=== PATIENT | male | born 1965 | race Caucasian/White ===

== ENCOUNTER 2020-09-02 16:43 | Emergency (ER) | payer BC ==
[2020-09-02 17:34] VITALS: BP 153/92; PULSE 78; RESP 20; TEMP 98.1
[2020-09-02] MEDS ORDERED: PROPARACAINE 0.5% OPHTH DROPS 15 ML BTL RIGHT EYE STA (19:43)
[2020-09-02] MEDS ORDERED: FLUORESCEIN STRIPS 1 MG STRIP RIGHT EYE ONE (19:43)
--- NOTE | 2020-09-02 19:43 | ED ---
Eye Problem HPI - General Chief complaint: Eye Problems Stated complaint: rt eye abrasion Time Seen by Provider: 09/02/20 19:05 Source: patient Mode of arrival: ambulatory Limitations: no limitations - History of Present Illness Initial comments: 55-year-old white male presents to the emergency room with his , alert and oriented 4, complaining of right eye foreign body this morning while cutting the grass. Patient states his he irrigated his eye and he continued to have pain, he went to urgent care and they irrigated his eye again did a fluorescein exam with proparacaine drops and was sent to the emergency room for evaluation of her abrasion or foreign body. Patient states that he currently 4 out of 10 pain described as aching. Patient states he does have a history of uveitis. Tetanus shot is up-to-date MD chief complaint: eye pain -: hour(s) (9) Onset Description: sudden Location: right eye Place: home If Injury: other (While cutting the grass) Eye Symptoms: redness, pain, other (Take) Severity scale (1-10): 4 If Pain, Quality: aching Consistency: constant Context: other (Foreign body) Associated Symptoms: none Treatments Prior to Arrival: irrigated eye, eyepatch, other (Seen in urgent care after proparacaine and fluorescein exam) - Related Data Previous Rx's Medication Instructions Recorded Erythromycin Ophth Oint [Romycin 1 applic RIGHT EYE QID 5 Days #1 gm 09/02/20 Ophth Oint] Allergies Allergy/AdvReac Type Severity Reaction Status Date / Time No Known Allergies Allergy Verified 09/02/20 17:34 Review of Systems ROS Statement: Those systems with pertinent positive or pertinent negative responses have been documented in the HPI. ROS Other: All systems not noted in ROS Statement are negative. Past Medical History Past Medical History: No Reported History History of Any Multi-Drug Resistant Organisms: None Reported Past Surgical History: Joint Replacement Additional Past Surgical History / Comment(s): lt shoulder Past Psychological History: No Psychological Hx Reported Smoking Status: Never smoker Past Alcohol Use History: Rare Past Drug Use History: None Reported General Exam Limitations: no limitations General appearance: alert, in no apparent distress Head exam: Present: atraumatic, normocephalic, normal inspection Eye exam: Present: PERRL, EOMI, conjunctival injection. Absent: scleral icterus, nystagmus, periorbital swelling, periorbital tenderness Pupils: Present: normal accommodation ENT exam: Present: normal exam, mucous membranes moist Neck exam: Present: normal inspection, full ROM. Absent: tenderness, meningismus, lymphadenopathy, thyromegaly Respiratory exam: Present: normal lung sounds bilaterally. Absent: respiratory distress, wheezes, rales, rhonchi, stridor Cardiovascular Exam: Present: regular rate, normal rhythm, normal heart sounds. Absent: systolic murmur, diastolic murmur, rubs, gallop, clicks GI/Abdominal exam: Present: soft, normal bowel sounds. Absent: distended, tenderness, guarding, rebound, rigid Extremities exam: Present: normal inspection, full ROM, normal capillary refill. Absent: tenderness, pedal edema, joint swelling, calf tenderness Back exam: Present: full ROM. Absent: tenderness, CVA tenderness (R), CVA tenderness (L), muscle spasm, paraspinal tenderness, vertebral tenderness Neurological exam: Present: alert, oriented X3, CN II-XII intact Psychiatric exam: Present: normal affect, normal mood Skin exam: Present: warm, dry, intact, normal color. Absent: rash Course Vital Signs 09/02/20 17:31 Temperature 98.1 F Pulse Rate 78 Respiratory 20 Rate Blood Pressure 153/92 O2 Sat by Pulse 99 Oximetry Procedures - Forgein Body Removal Eye Site: Right Anesthetic Used: Proparacaine Eye Exam Technique: [place], Fluorescein Foreign Body Suspected: Other Forgein Body Removal Technique: Cotton Swab, Needle Remaining Debris: No Patient Tolerated: well (Insulin needle) Medical Decision Making - Medical Decision Making Patient with no visual disturbances, foreign body removed from the eye at 3:00 with insulin needle after proparacaine instilled. Patient will be treated with erythromycin ointment and follow-up with ophthalmology. He is discussed with Dr Dubose. Disposition Clinical Impression: Foreign body, eye Disposition: HOME SELF-CARE Condition: Good Instructions (If sedation given, give patient instructions): Eye Foreign Body (ED) Additional Instructions: Use medication as prescribed for 5 days and follow-up with ophthalmology Prescriptions: Erythromycin Ophth Oint [Romycin Ophth Oint] 1 applic RIGHT EYE QID 5 Days #1 gm Is patient prescribed a controlled substance at d/c from ED?: No Referrals: Nonstaff,Physician [Primary Care Provider] - 1-2 days Seema Newman MD [STAFF PHYSICIAN] - 1-2 days Time of Disposition: 21:10
[2020-09-02] MEDS ORDERED: IBUPROFEN 800 MG TAB PO STA (19:49)
[2020-09-02] MEDS ORDERED: ERYTHROMYCIN 5 MG/GM OPHTH OINT 3.5 GM TUBE RIGHT EYE STA (21:06)
== END 2020-09-02 21:31 | disposition home or self-care (01) ==
LOC: EC 16:43
DX: T15.91XA Foreign body on external eye, part unspecified, right eye, initial encounter (principal)
CPT/HCPCS: 65220; 99282